=== PATIENT | female | born 1945 | race Caucasian/White ===

== ENCOUNTER → 2016-02-25 | Outpatient (REF) | payer MEDICARE, OTHER ==
[~2016-02-25] MED LIST: AMIT25TA9 PO; AMT25T PO; ASPI-586 PO; ATOR10TA PO; CEFD300C9 PO; FLEC150T PO; FRSM20T PO; FURO-124; HDRL25T PO; HYDR-2013 PO; HYDR-3702 PO; HYDR-3811 PO; ISM30TCR PO; NITR0.4T7 SL; NIZA300C3; POTA10TA10 PO; SIMV20TA; SPRN25T PO; SULF-228 PO; VERA180C2 PO
== END ==
LOC: LAB 02-24 18:55
PROVIDERS: ATTEND Internal Medicine
DX: R30.0 Dysuria (principal)
CPT/HCPCS: 87077; 87088; 87186

== ENCOUNTER → 2016-03-20 | Outpatient (REF) | payer MEDICARE, OTHER ==
[2016-03-20 16:46] LABS: URINE CENTRIFUGED VOLUME 12 mL
[2016-03-20 16:48] LABS: RBC,URINE 0-2 /HPF
== END ==
LOC: LAB 15:47
PROVIDERS: ATTEND Internal Medicine
DX: R30.0 Dysuria (principal)
CPT/HCPCS: 81015; 87088

== ENCOUNTER → 2016-05-02 | Outpatient (CLI) | payer MEDICARE, OTHER ==
[2016-05-02 08:37] LABS: BASOPHILS % (AUTO) 1 % (0-2); EOSINOPHILS # (AUTO) 0.2 10^3uL; EOSINOPHILS % (AUTO) 3 % (0-4); LYMPHOCYTES # (AUTO) 1.2 X10^3; MEAN CORPUSCULAR HGB CONC 32.4 g/dL (31.0-37.0); MEAN CORPUSCULAR VOLUME 82 FL (80-100); MEAN PLATELET VOLUME 9.6 FL (6.0-9.5); MONOCYTES # (AUTO) 0.3 X10^3; MONOCYTES % (AUTO) 6 % (3-11); NEUTROPHILS # (AUTO) 2.7 X10^3; NEUTROPHILS % (AUTO) 62 % (51-67); PLATELET COUNT 170 10^3uL (150-450)
[2016-05-02 08:38] LABS: MEAN CORPUSCULAR HEMOGLOBIN 26.7 PG (26.0-34.0)
[2016-05-02 09:28] LABS: ALBUMIN 3.7 g/dL (3.4-5.0); ANION GAP 13.3 MEQ/L (3-15); CALCULATED IONIZED CALCIUM 4.4 mg/dL (3.8-4.6); TOTAL PROTEIN 6.1 g/dL (6.4-8.5)
== END ==
LOC: LAB 08:18
PROVIDERS: ATTEND Internal Medicine
DX: Z00.00 Encounter for general adult medical examination without abnormal findings (principal); I10 Essential (primary) hypertension; R73.09 Other abnormal glucose; E78.00 Pure hypercholesterolemia, unspecified; I20.1 Angina pectoris with documented spasm
CPT/HCPCS: 36415; 80053; 80061; 83036; 84443; 85025